=== PATIENT | male | born 1995 | race Caucasian/White ===

== ENCOUNTER 2019-09-30 14:39 | Day surgery (SDC) | payer OTHER ==
[2019-09-30] VITALS (8 sets, daily range): BP systolic 112–142; BP diastolic 56–75; PULSE 66–92; TEMP 97.4–98.9
[~2019-09-30] VITALS: Ht 180.3 cm; Wt 91.3 kg
== END 2019-09-30 20:45 | disposition home or self-care (01) ==
LOC: SDCO 14:39 → SURG 17:45 → SDCO 20:45
DX: N35.919 Unspecified urethral stricture, male, unspecified site (principal); J45.909 Unspecified asthma, uncomplicated
CPT/HCPCS: OP; C1769; J0690; J1100; J2250; J2405; J2704; J3010; J7120

== ENCOUNTER 2019-10-08 01:40 | Observation (INO) | payer OTHER ==
[~2019-10-08] VITALS: Ht 180.3 cm; Wt 89.7 kg
[2019-10-08 03:40] VITALS: BP 123/62; PULSE 80; TEMP 97.6
--- NOTE | 2019-10-08 04:40 | NUR ---
Pt arrived to the floor via stretcher. Pt was able to ambulate to the bed. Pt stated that his pain was better than it was when he came into the ER. Pt had a 16 [place] [address]anford draining red tinged urine. Pt was given his call light and pt bed is in lowest position.
[2019-10-08] MEDS ORDERED: MOTRIN 400400 MG/TAB PO (04:48)
--- NOTE | 2019-10-08 05:00 | NUR ---
Pt lungs sounds were clear and heart sounds were normal S1 and S2 sounds. Pt stated that he wasn't having much pain at thisi time. Pt was hooked up to a Morphine COFFEE GROWER at this time. Pt has normal saline infusion at 125ml/hr. Pt also has a [address] with CBI running at this time. Pt stated that this was very different and he was very nervous before insertion. Pt has yellow urine draining at this time. Pt stated that with the COFFEE GROWER pump he is feeling better. Pt has his call light and his bed is in lowest position .
--- NOTE | 2019-10-08 06:50 | NUR ---
Dr. Townsend called to get pt status. He wanted pt BROADCAST CORRESPONDENT discontinued and pt to have [place] 5/325 (2) tabs Q 4 hours and Morphine 3mg PRN for breakthrough pain. Order was a telephone readback order that was added to pt orders. Pt is doing well at this time he is resting in bed. He did state that it hurts whenever we move the tubing fromt he catheter. He said that as long as it's not moving he doesn't feel much pain. Pt has clear yellow urine in his tubing and stanford bag. Pt has his call light within reach and his bed is in lowest position . Pt BROADCAST CORRESPONDENT is currently discontinued.
[2019-10-08 07:11] VITALS: BP 115/59; PULSE 65; TEMP 98
--- NOTE | 2019-10-08 07:15 | NUR ---
Reported off to ANA Dowell. Pt is currently lying in bed. He has his call light within reach.
--- NOTE | 2019-10-08 08:04 | NUR ---
Urinary output adequate this shift. Urine light eladio and clear. No c/o urinary burning, frequency or hesitancy.
--- NOTE | 2019-10-08 08:46 | NUR ---
Jung, Urology PA here to see patient.
--- NOTE | 2019-10-08 09:00 | NUR ---
Patient alert and oriented, answers questions appropriately. See assessment. CBI clamped at 0730 this am. Howe catheter patent and draining clear yellow urine. No c/o at this time.
--- NOTE | 2019-10-08 11:17 | NUR ---
Howe catheter removed at this time per drs order.
--- NOTE | 2019-10-08 11:58 | NUR ---
First visit from the heavy line technician. No needs right now.
[2019-10-08 12:18] VITALS: BP 121/65; PULSE 73; TEMP 97.9
[2019-10-08 15:53] VITALS: BP 123/74; PULSE 74; TEMP 98.2
--- NOTE | 2019-10-08 20:00 | NUR ---
Received report from ANA Dowell. Pt sitting up in the chair. He had no concerns or complaints at this time. Pt has his call light within reach.
[2019-10-08 20:09] VITALS: BP 123/66; PULSE 70; TEMP 97.4
--- NOTE | 2019-10-09 00:30 | NUR ---
Pt wanted to ambulate down the hallway. Pt was given a mask and he ambulated for a little while and he went to bed
[2019-10-09 00:43] VITALS: BP 118/63; PULSE 70; TEMP 98.3
--- NOTE | 2019-10-09 02:09 | NUR ---
Pt currently sleeping in bed.
[2019-10-09 05:10] VITALS: BP 119/80; PULSE 85; TEMP 97.8
[2019-10-09 07:15] VITALS: BP 116/66; PULSE 65; TEMP 97.8
--- NOTE | 2019-10-09 07:25 | NUR ---
Reported off to ANA Dowell. Pt has his call light within reach and his bed in lowest position.
--- NOTE | 2019-10-09 09:15 | NUR ---
Patient alert and oriented, answers questions appropriately. See assessment. No c/o urinary burning, frequency or hesitancy. Voiding adequate amounts. No c/o at this time.
--- NOTE | 2019-10-09 10:06 | NUR ---
Discharge instructions reviewed with the patient. Questions answered. Patient verbalizes understanding and signs paperwork. Discharge packet provided to the patient. Patient will push call light when he is done getting dressed. SGT Gómez here to take patient home via POV.
--- NOTE | 2019-10-09 10:14 | NUR ---
Patient ready to leave. Has all personal belongings. Patient ambulates out with LINH Pena.
--- NOTE | 2019-10-09 10:36 | NUR ---
Discharge instructions reviewed with patient, verbalized understanding. Discharged ambulatory to auto/home with friend at 1030.
== END 2019-10-09 10:30 | disposition home or self-care (01) ==
LOC: MEDICAL 01:40 → SURG 03:33
PROVIDERS: ADMIT Urology
DX: R33.9 Retention of urine, unspecified (principal); R31.0 Gross hematuria; N32.89 Other specified disorders of bladder; F17.210 Nicotine dependence, cigarettes, uncomplicated
CPT/HCPCS: G0378; G0379; J2270; J7030